=== PATIENT | male | born 1990 | race Caucasian/White ===

== ENCOUNTER 2018-03-28 19:51 | Observation (INO) ==
[2018-03-28 22:34] LABS: Basophils # 0.1 K/mcL (0.0-0.2); Basophils % 0.3 %; Eosinophils # 0.1 K/mcL (0.0-0.6); Eosinophils % 0.5 %; Hematocrit 44.4 % (37.5-50.1); Hemoglobin 14.9 g/dL (12.9-16.9); Immature Granulocytes % 0.6 % (0-4); Lymphocytes # 2.2 K/mcL (0.6-4.6); Lymphocytes % 11.5 %; Mean Corpuscular HGB Conc 33.6 g/dL (31.6-35.5); Mean Corpuscular Volume 89.3 fL (83.0-100.0); Mean Platelet Volume 9.2 fL (9.4-12.4); Monocytes # 1.3 K/mcL (0.0-1.3); Monocytes % 6.5 %; Neutrophils # 15.7 K/mcL (1.6-8.9); Platelet Count 296 K/mcL (140-400); Red Blood Count 4.97 M/mcL (4.19-5.50); Red Cell Distribution Width 12.9 % (11.5-14.5); Segmented Neutrophils % 80.6 %
--- NOTE | 2018-03-28 22:45 | Emergency Department Note ---
Disposition Clinical Impression: Abscess of right buttock, Cellulitis of right buttock Disposition: Admitted As Inpatient Condition: Good Time of Disposition: 23:57 Skin/Abscess/FB HPI Chief complaint: ED Skin/Abscess/Foreign Body Stated complaint: cant eat or drink [id number]. Here abcess Time Seen by Provider: 03/28/18 21:31 Source: patient Mode of arrival: ambulatory Limitations: no limitations Nursing Notes Reviewed: Yes Vital Signs Reviewed: Yes HPI Narrative: Patient is a 27-year-old male with past medical history of hypertension. He presents today due to concern for right buttocks cellulitis/abscess, fever, nausea, decreased by mouth intake. Patient states that he was seen yesterday at [facility]. He had a right buttocks abscess incised and drained, was sent home with instructions to take Motrin and also antibiotic. Patient states that he never got a call from his pharmacy that an antibiotic was filled. He did not take any antibiotics yesterday or today. Today, he noted that he felt generally fatigued. He had a MAXIMUM TEMPERATURE of 102 today. He has felt nauseous but no vomiting, no diarrhea, no abdominal pain, dysuria, hematuria, chest pain, shortness breath, headaches. He has worsening pain in the right buttocks. He is concerned for worsening infection. Denies taking any Motrin or Tylenol prior to arrival today. Home Medications Medication Instructions Recorded Confirmed Sertraline [Zoloft] 25 mg PO HS 03/03/18 03/03/18 Previous Rx's Medication Instructions Recorded Cephalexin [Keflex] 500 mg PO TID #21 capsule 03/03/18 Ibuprofen [Motrin] 600 mg PO Q6HR PRN #20 tab 03/03/18 metroNIDAZOLE [Flagyl] 500 mg PO TID #21 tablet 03/03/18 Allergies Allergy/AdvReac Type Severity Reaction Status Date / Time No Known Allergies Allergy Verified 03/03/18 22:24 All systems ED: reviewed and negative except as stated. Constitutional: Reports: fever Cardiovascular: Denies: chest pain Respiratory: Denies: cough, dyspnea, wheezes Gastrointestinal: Reports: nausea. Denies: abdominal pain, vomiting, diarrhea Genitourinary: Denies: urgency, dysuria Integumentary: Reports: other (Right buttocks lesion) Neurological: Denies: headache, weakness, numbness, paresthesias Past Medical History - Past Medical History Attestation: Yes The following information was validated with the patient. Source: patient Medical history: Reports: hypertension Psychiatric history: Reports: ADHD - Social History Smoking Status: Former smoker Smokeless Tobacco Status: Yes Alcohol use: Reports: none Drug use: Reports: none Physical Exam - General Limitations: no limitations General appearance: alert, in no apparent distress - Head Head exam: atraumatic, normocephalic, normal inspection - Eye Eye exam: Present: normal appearance, PERRL, EOMI - ENT ENT exam: normal exam, normal oropharynx, mucous membranes moist - Neck Neck exam: Present: normal inspection, full ROM, trachea midline - Chest Chest inspection: Present: normal inspection, symmetric chest wall rise - Respiratory Respiratory exam: Present: normal lung sounds bilaterally - Cardiovascular Cardiovascular exam: Present: regular rate, normal rhythm, normal heart sounds - Abdominal Exam Abdominal exam: Present: soft, Non-Tender. 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 Absent: paraphimosis, penile swelling, induration, erythema, perineal induration, inguinal lymphadenopathy, testicular tenderness, urethral discharge, scrotal swelling - Extremities Exam Extremities exam: Present: normal inspection, full ROM. Absent: tenderness, pedal edema - Neurological Exam Neurological exam: Present: alert, oriented X3 - Psychiatric Psychiatric exam: Present: normal affect, normal mood - Skin Skin exam: Present: warm, dry, intact, normal color Course Course Narrative: Patient was tachycardic and febrile on presentation. Also had elevated white blood cell count of 19.5. BMP shows no major electrolyte abnormalities. Blood cultures and lactic acid ordered. Patient was started on vancomycin and Zosyn. Also ordered 3 L normal saline bolus. Tylenol given for fever. We will obtain CT imaging of the pelvis with IV contrast to assess for gas, any further abscess formation, any perineal involvement. Will admit to hospitalist for further care. 23:56 patient was accepted by hospitalist Dr. Blanco for further care. He will follow-up with CT pelvis. Vital Signs Temperature 101.8 F H 03/28/18 20:56 Pulse Rate 123 03/28/18 20:56 Respiratory Rate 22 03/28/18 20:56 Blood Pressure 155/97 03/28/18 20:56 O2 Sat by Pulse Oximetry 98 03/28/18 20:56 Temperature 101.8 F H 03/28/18 23:06 Pulse Rate 115 03/28/18 23:32 Respiratory Rate 21 03/28/18 23:32 Blood Pressure 140/65 03/28/18 23:32 O2 Sat by Pulse Oximetry 99 03/28/18 23:32 Oxygen Delivery Oxygen Delivery Room Air Skin/Abscess/Foreign Body - MDM Narrative Medical decision making narrative: Patient was tachycardic and febrile on presentation. Also had elevated white blood cell count of 19.5. BMP shows no major electrolyte abnormalities. Blood cultures and lactic acid ordered. Patient was started on vancomycin and Zosyn. Also ordered 3 L normal saline bolus. Tylenol given for fever. We will obtain CT imaging of the pelvis with IV contrast to assess for gas, any further abscess formation, any perineal involvement. Will admit to hospitalist for further care. 23:56 patient was accepted by hospitalist Dr. Blanco for further care. He will follow-up with CT pelvis. - Medical Records Medical records reviewed: Yes I reviewed the patient's medical records. - Lab Data Lab results reviewed: Yes I reviewed the patient's lab results. Result diagrams: 03/28/18 22:24 03/28/18 22:24 Lab Results 03/28/18 03/28/18 03/28/18 Range/Units 22:24 22:24 23:08 WBC 19.5 H (4.3-11.1) K/mcL RBC 4.97 (4.19-5.50) M/mcL Hgb 14.9 (12.9-16.9) g/dL Hct 44.4 (37.5-50.1) % MCV 89.3 (83.0-100.0) fL MCH 30.0 (28.0-33.3) pg MCHC 33.6 (31.6-35.5) g/dL RDW 12.9 (11.5-14.5) % Plt Count 296 (140-400) K/mcL MPV 9.2 L (9.4-12.4) fL Immature Gran % 0.6 (0-4) % Seg Neutrophils % 80.6 % Lymphocytes % 11.5 % Monocytes % 6.5 % Eosinophils % 0.5 % Basophils % 0.3 % Neutrophils # 15.7 H (1.6-8.9) K/mcL Lymphocytes # 2.2 (0.6-4.6) K/mcL Monocytes # 1.3 (0.0-1.3) K/mcL Eosinophils # 0.1 (0.0-0.6) K/mcL Basophils # 0.1 (0.0-0.2) K/mcL Sodium 136 (136-145) mEq/L Potassium 4.0 (3.5-5.1) mEq/L Chloride 103 (98-107) mEq/L Carbon Dioxide 26 (23-29) mEq/L BUN 9 (6-20) mg/dL Creatinine 1.13 (0.70-1.30) mg/dL Est GFR ( Amer) > 60 (> 60) Est GFR (Non-Af Amer) > 60 (> 60) BUN/Creatinine Ratio 8 (6-26) Glucose 128 H (70-105) mg/dL Calculated Osmolality 282 (280-300) Lactic Acid 0.7 (0.5-2.2) mmol/L Calcium 9.6 (8.6-10.3) mg/dL S.B.A.R. - S.B.A.R. Situation: Demographics, MOA Background: Presenting Complaint, Relevant PMH, Meds, & Allergies Assessment: Vital Signs, Course and respsone to treatment, Exam Concerns, Patient/Family Expectation, Pertinant Lab Results, Outstanding Labs Recommendation: Barrier(s) to disposition, Recommendation based on pending studies, treatments, or consults S.B.A.R. Report Given to: Dr. Blanco S.B.A.RMario Repor Time: 23:57 Attestation Statement - Attestation Attestation: I examined this patient and my medical decision-making was reviewed with the Resident Physician, Dr. Dawn. I agree with the documented findings, disposition and treatment plan as described except to the extent set forth below. Pt is a 27 yo wm who presents to the eR with worsening R buttock pain s/p I&D at another facility yesterday. Pt meets SIRS criteria on arrival, IVF boluses ordered, lactate and labs sent and IV antibx initiated. Pt was prescribed antibx yesterday following I&D, but never had it filled. Pt febril, tach and with gluteal abscess with surorunding cellulitis. No hx MRSA. I agree with pt;s PE findings as documented. Pt with improved HR after IVF, labs show leukocytosis. CT pending for further eval of gluteal abscess. Hospitalist accepted pt for admissiona nd will f/u with CT.
[2018-03-28 22:53] LABS: BUN/Creatinine Ratio 8 (6-26); Blood Urea Nitrogen 9 mg/dL (6-20); Calcium 9.6 mg/dL (8.6-10.3); Carbon Dioxide 26 mEq/L (23-29); Chloride 103 mEq/L (98-107); Glucose 128 mg/dL (70-105); Osmolality,Calculated 282 (280-300); Sodium 136 mEq/L (136-145); eGFR For Non-African Americans > 60 (> 60)
[2018-03-28] MEDS ORDERED: Piperacillin/Tazobactam 3.375 GM in 0.9 % Sodium Chloride Mini Bag 100 ML IVPB ONE (22:57)
[2018-03-28] MEDS ORDERED: Isovue-370 500 ML INFUS..BTL IV ONE (23:13)
[2018-03-28] MEDS: 0.9 % Sodium Chloride 1,000 ML IVC SCH (23:27)
[2018-03-29] MEDS: 0.9 % Sodium Chloride 1,000 ML IVC SCH ×2 (00:08→02:03)
[2018-03-29] MEDS ORDERED: *HR* OxyCODONE Immed Rel 5 MG TABLET PO PRN (01:41)
[2018-03-29] MEDS ORDERED: Naloxone 0.4 MG/ML INJ IVP PRN (01:41)
[2018-03-29] MEDS ORDERED: Acetaminophen 325 MG TABLET PO PRN (01:41)
[2018-03-29] MEDS ORDERED: traMADol 50 MG TABLET PO PRN (01:41)
--- NOTE | 2018-03-29 02:38 | Internal Med History&Physical ---
Date of Encounter: 03/29/18 Time of Encounter: 02:35 Internal Medicine - H&P: HPI Chief complaint: buttock pain Admitted From: Home Plans for Post Hospital Care: Home History of present illness: Felipe Damico is a 27 year old man with no reported past medical history who was seen and [facility] emergency room about 3 weeks ago for swelling and pain in the area of his right buttocks and was diagnosed with a mild cellulitis with abscess formation being prescribed a 7 day course of cephalexin and metronidazole. He says he never filled the antibiotics and again went to the ER yesterday where incision and drainage was done. He comes in today with a complaint of fever of 102, nausea, generalized malaise, chills and ongoing pain around the affected area. On arrival he was tachycardic and had a temperature of 101.8F. Lab work was revealing of leukocytosis at 19.1 but no lactic acidemia. Due to progression of the inflammatory findings reported he had a pelvic CT scan done which did not reveal an abscess but showed subcutaneous stranding within the right gluteal region likely related to cellulitis. Blood cultures were obtained and he was started on intravenous antibiotics. He is now admitted for observation. PMHx: As above. No reported surgeries. SHx: Denies illicit drug use. FHx: No family history of recurrent infections. Review of systems: All systems reviewed and negative except as listed above in the HPI. Past Med Surg Social Fam HX - Past Medical History Medical history: hypertension Psychiatric history: ADHD - Social History Smoking Status: Former smoker Smokeless Tobacco Status: Yes Alcohol use: none Drug use: none - Family History Father Hx Family Cardiac Disorders: Yes Hx Family Endocrine Disorder: Yes Mother Hx Family Cardiac Disorders: Yes Hx Family Endocrine Disorder: Yes Internal Medicine - H&P: Meds Cephalexin [Keflex] 500 mg PO TID #21 capsule 03/03/18 [Rx] Ibuprofen [Motrin] 600 mg PO Q6HR PRN #20 tab 03/03/18 [Rx] Sertraline [Zoloft] 25 mg PO HS 03/03/18 [History] metroNIDAZOLE [Flagyl] 500 mg PO TID #21 tablet 03/03/18 [Rx] Allergy/AdvReac Type Severity Reaction Status Date / Time No Known Allergies Allergy Verified 03/03/18 22:24 All Systems PM: A 10-system review of systems was performed and is negative for pertinent findings except as documented above in the HPI. - Constitutional Vitals: Temp Pulse Resp BP Pulse Ox 98.1 F 103 17 123/52 96 03/29/18 01:03 03/29/18 01:03 03/29/18 01:03 03/29/18 01:03 03/29/18 01:03 Exam: Vitals: Reviewed General: Well-developed white male lying supine in no acute distress Skin: Warm and supple. Area of mild erythema on the right gluteal cheek in its medial aspect with palpable induration. 1cm opening with no purulence draining. HEENT: Moist mucous membranes. No conjunctivae pallor. Neck: No lymphadenopathy. No JVD. No carotid bruits. No palpable thyroid. Chest: Normal thoracic expansion. Normal breath sounds. Clear to auscultation. Heart: Normal S1 & S2; rhythmic. No rubs or murmurs. Abdomen: Non-distended, soft and non-tender to palpation. No peritoneal reaction. Extremities: No clubbing, cyanosis or edema. No calf tenderness. Normal distal pulses. Neurological: Awake, alert and oriented to person, place and time. No focal deficits. Psych: Affect appropriate. Internal Med - H&P Results - Labs CBC & Chem 7: 03/28/18 22:24 03/28/18 22:24 Labs: Short CBC 03/28/18 Range/Units 22:24 WBC 19.5 H (4.3-11.1) K/mcL Hgb 14.9 (12.9-16.9) g/dL Hct 44.4 (37.5-50.1) % Plt Count 296 (140-400) K/mcL Neutrophils # 15.7 H (1.6-8.9) K/mcL BMP 03/28/18 22:24 Sodium 136 Potassium 4.0 Chloride 103 Carbon Dioxide 26 BUN 9 Creatinine 1.13 Glucose 128 H Calcium 9.6 - Impressions ITS Impressions Pelvis CT 03/28/18 23:13 IMPRESSION: No evidence of an abscess. There is subcutaneous stranding within the right gluteal region, likely related to cellulitis. D/ / Candice Pastrana MD / Candice Pastrana MD Interpreting Provider: Candice Pastrana MD - Assessment and plan (1) Cellulitis of right buttock Current Visit: Yes Status: Acute Assessment and plan: The formation of an abscess is concerning for a Staphylococcal infection possibly secondary to a prior folliculitis. No traumatic injuries reported. Unclear if the drained sample was sent for culture. Will keep on vancomycin to cover Staph/Strep species for now and re-assess. If adequately responding can likely go home with an oral course of clindamycin or tmp/smx. (2) Sepsis Current Visit: Yes Status: Acute Assessment and plan: As evidenced by fever, tachycardia and leukocytosis and with skin/soft tissue being the focal source. IVF and abx as indicated above. Qualifiers: Sepsis type: sepsis due to unspecified organism Qualified Code(s): A41.9 - Sepsis, unspecified organism (3) Obesity Current Visit: Yes Status: Acute Assessment and plan: Therapeutic lifestyle education given. Qualifiers: Obesity type: due to excess calories Obesity classification: adult class 3 (BMI >= 40) Serious obesity comorbidity presence: unspecified whether serious comorbidity present Body mass index: BMI 45.0-49.9 Qualified Code(s): E66.01 - Morbid (severe) obesity due to excess calories; Z68.42 - Body mass index (BMI) 45.0-49.9, adult (4) DVT prophylaxis Current Visit: Yes Status: Acute Assessment and plan: SubQ heparin indicated. - Time Spent With Patient Total time spent is greater than 50% in coordination of care (as documented) at patient's floor/unit and/or counseling patient: Greater than 35 minutes
[2018-03-29 04:43] LABS: Basophils # 0.1 K/mcL (0.0-0.2); Basophils % 0.3 %; Eosinophils # 0.1 K/mcL (0.0-0.6); Eosinophils % 0.8 %; Hematocrit 38.6 % (37.5-50.1); Immature Granulocytes % 0.4 % (0-4); Lymphocytes # 2.9 K/mcL (0.6-4.6); Lymphocytes % 17.9 %; Mean Corpuscular HGB Conc 33.7 g/dL (31.6-35.5); Mean Corpuscular Hemoglobin 30.4 pg (28.0-33.3); Mean Corpuscular Volume 90.4 fL (83.0-100.0); Mean Platelet Volume 9.3 fL (9.4-12.4); Monocytes # 1.2 K/mcL (0.0-1.3); Monocytes % 7.5 %; Neutrophils # 11.9 K/mcL (1.6-8.9); Platelet Count 214 K/mcL (140-400); Red Blood Count 4.27 M/mcL (4.19-5.50); Red Cell Distribution Width 13.1 % (11.5-14.5); Segmented Neutrophils % 73.1 %
[2018-03-29 04:56] LABS: BUN/Creatinine Ratio 9 (6-26); Blood Urea Nitrogen 9 mg/dL (6-20); Calcium 8.1 mg/dL (8.6-10.3); Carbon Dioxide 26 mEq/L (23-29); Chloride 110 mEq/L (98-107); Glucose 126 mg/dL (70-105); Osmolality,Calculated 290 (280-300); Potassium 3.9 mEq/L (3.5-5.1); Sodium 140 mEq/L (136-145); eGFR For Non-African Americans > 60 (> 60)
[2018-03-29] MEDS: *HR* Heparin 5,000 UNIT/ML VIAL SQ SCH ×2 (06:17→17:18)
[2018-03-30] MEDS: *HR* Heparin 5,000 UNIT/ML VIAL SQ SCH (05:08)
[2018-03-30 07:49] VITALS: BP 173/66
--- NOTE | 2018-03-30 11:23 | Discharge Summary ---
Orders not resulted at time of discharge: Pending orders 03/28/18 23:08 Culture,Blood [BC] Stat Date of Encounter: 03/30/18 Time of Encounter: 11:20 - Discharge Diagnosis (1) Cellulitis of right buttock Priority: Primary Status: Acute (2) Sepsis Priority: Primary Status: Resolved Qualifiers: Sepsis type: sepsis due to unspecified organism Qualified Code(s): A41.9 - Sepsis, unspecified organism (3) HTN (hypertension) Priority: Secondary Status: Chronic Qualifiers: Hypertension type: essential hypertension Qualified Code(s): I10 - Essential (primary) hypertension (4) Obesity Priority: Secondary Status: Chronic Qualifiers: Obesity type: due to excess calories Obesity classification: adult class 3 (BMI >= 40) Serious obesity comorbidity presence: unspecified whether serious comorbidity present Body mass index: BMI 45.0-49.9 Qualified Code(s): E66.01 - Morbid (severe) obesity due to excess calories; Z68.42 - Body mass index (BMI) 45.0-49.9, adult Hospital course: HOSPITAL COURSE: The patient is a 27-year-old male. We admitted him with abscess/cellulitis of the medial/upper quarter of right buttock. He had an incision and drainage of the abscess done on the day preceding this admission in our emergency room. Then, he was sent home. He came on the next day complaining of severe pain and swelling. He did not get any antibiotic from his pharmacist. We treated him with IV vancomycin. We got wound culture on the day of discharge. It showed MRSA with sensitivity to Bactrim and clindamycin. CONDITION AT DISCHARGE: He feels better today. His pain seems to be under control. There is no fever or chills. He received training in packing of the wound. Skin: Free of rash and discoloration. The wound of his right buttock seems to be clean. It was require packing. Respiratory: Normal breath sounds with no crackles and wheezes bilaterally. CV: Heart is regular with no gallop or murmur. GI: Abdomen is flat and soft with no palpable mass or visceromegaly. Neuro exam: There is no focal deficits. Normal speech, swallowing and gait. SEE DISCHARGE ORDERS/MEDICATIONS.. I sent him home on oral Bactrim. - Time Spent with Patient Total time spent providing and/or coordinating discharge services: Greater than 30 minutes (40 minutes..) - Discharge Medications Prescriptions: OxyCODONE Immed Rel [Roxicodone 5 MG] 10 mg PO Q6HR PRN 4 Days #12 tablet PRN Reason: Severe Pain Sulfamethoxazole/Trimeth DS [Bactrim DS] 1 each PO BID 10 Days #20 tablet Home Medications: Lisinopril-HCTZ 10-12.5 [Prinzide 10-12.5] 1 tab PO DAILY 03/29/18 [History] Naproxen 500 mg PO BID 03/29/18 [History] Sertraline [Zoloft] 50 mg PO DAILY 03/29/18 [History] Acetaminophen [Tylenol] 650 mg PO Q6HR PRN tablet 03/30/18 [Rx] OxyCODONE Immed Rel [Roxicodone 5 MG] 10 mg PO Q6HR PRN 4 Days #12 tablet 03/30/18 [Rx] Sulfamethoxazole/Trimeth DS [Bactrim DS] 1 each PO BID 10 Days #20 tablet 03/30/18 [Rx] Allergies/Adverse Reactions: Allergy/AdvReac Type Severity Reaction Status Date / Time No Known Allergies Allergy Verified 03/03/18 22:24 Date of admission: 03/28/18 23:45 Primary care physician: Terell Wu MD Consults: 03/29/18 13:02 Consult to Wound Care [CONS] Routine Reason for Consult: abcess Call Completed: Yes Discharging clinician: Marcellus Mcknight Anticipated date of discharge: 03/30/18 - Constitutional Vitals: Temp Pulse Resp BP Pulse Ox 98.1 F 68 16 173/66 98 03/30/18 07:45 03/30/18 07:45 03/30/18 07:45 03/30/18 07:45 03/30/18 07:45 General appearance: Present: A&O X 3, no acute distress, answers questions appropriately Exam: xx - Patient Status Disposition: Home, Self-Care Condition: Good Functional capacity at discharge: independent ambulation Overall status at discharge: patient is progressing back to baseline - Discharge Instructions Instructions: Oxycodone, Rapid Release (By mouth), Sulfamethoxazole (By mouth), Cellulitis (DC) Follow Up With: Akhil Mccain MD [Non-Partnered Physician] - (Please call Sunday morning to see what time your follow up appointment is. Thank you!) Terell Wu MD [Primary Care Provider] - Additional Instructions: SICK LEAVE -- 03/28-04/03/2018.. WOUND DRESSING/WITH PACKING -- DAILY ( INSTRUCTED BY NURSING STAFF).. FOLLOW-UP WITH [facility]. SURGERY ON 04/03/18.. - Diet and Activity Activity: increase activity as tolerated Diet: low fat, low cholesterol - VTE Deep Vein Thrombosis/Pulmonary Embolism Present on Admission: No
== END 2018-03-30 12:51 | disposition home or self-care (01) ==
LOC: 2ANU 19:51 → EMEROOARM 19:51 → SUATTDRO 23:45 → 2ANU 03-29 00:26
PROVIDERS: ADMIT Internal Medicine; ATTEND Internal Medicine